=== PATIENT | female | born 1935 | race Caucasian/White ===

== ENCOUNTER 2016-10-03 14:02 | Observation (INO) ==
[2016-10-03] MEDS ORDERED: NITROGLYCERIN 2% OINT 1 INCH/GM PACK TOP STA (14:27)
[2016-10-03] MEDS ORDERED: ENOXAPARIN 100 MG/ML SYRINGE SUBCUT STA (14:27)
[2016-10-03] MEDS ORDERED: MORPHINE 2 MG/1 ML SYRINGE IV STA (14:27)
[2016-10-03] MEDS ORDERED: ONDANSETRON 4 MG/2 ML VIAL IV STA (14:27)
[2016-10-03] MEDS ORDERED: ASPIRIN 325 MG TABLET PO STA (14:27)
--- NOTE | 2016-10-03 14:31 | EKG Report ---
Stationary ECG Study 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
--- NOTE | 2016-10-03 14:46 | XRay Report ---
Exam: Chest 2 views Date: October 03, 2016 at 2:37 PM Comparison: None Reason: Chest pain Findings: The cardiac silhouette is upper normal in size. There is minimal scattered atelectasis or scarring within the lower lung zones. No pneumothorax or pleural effusion is identified. There is kyphosis and mild degenerative change at the thoracic spine, but no acute osseous process is seen. Surgical clips are noted within the right upper abdomen. Impression: Minimal scattered atelectasis or scarring within both lower lung zones. PROCEDURE INTERPRETED AT [facility] DEPARTMENT OF RADIOLOGY Final Report Signed by: Dr. Dylon Gardner
--- NOTE | 2016-10-03 14:55 | Emergency Department Note ---
Eve Diallo Ashley, am scribing for, and in the presence of, Sherif Delarosa MD 14 :45. Isaura Diallo James D, MD, personally performed the services described in this documentation, ascribed by Virginia Prado in my presence, and it is both accurate and complete 455 . Arrival - Arrival Chief Complaint: Chest Pain Stated Complaint: chest pain ED Nursing Triage Note: Pt states that she is having left shoulder and left arm pain - pt states that she has been seeing Dr Storm for this c/o and had some labs and EKG done and states that she has appt with Dr Mei for next week - pt was placed on a beta mario per Dr Storm at her last visit Mode of Arrival: Wheelchair Limitations: No Limitations Source: Patient Time Seen by Provider: 10/03/16 14:23 - History of Present Illness HPI Narrative: Ms. Price, an 81 year old female with history of angioplasty by Dr. Mei, presents with anterior left shoulder pain that radiates into her left arm. She report "not feeling well" when she first awoke, but around 10am she noticed the pain. She describes the pain as a constant pressure. The pain is accompanied with nausea and SOB. Exertion makes her SOB worse. She notes that she was seen at Dr. Storm office this past Friday with profuse sweating. An EKG showed an "abnormality" and a HR of 110. Dr. Storm put her on a beta mario at that time. Dr. Storm has recommended she follow up with Dr. Mei, and she has not had an appointment yet. She denies sweating, CHRISTIANSEN, back pain, neck pain, abdominal pain, and fever today. Onset (ago): hour(s) (4.5) Consistency: constant Severity: moderate Quality: other (pressure) Date of Last Menstrual Period: hyster Allergies/Adverse Reactions: Allergies Allergy/AdvReac Type Severity Reaction Status Date / Time levofloxacin [From Levaquin] Allergy Unknown/Unable Verified 10/03/16 14:10 to obtain Sulfa (Sulfonamide Allergy RASH Verified 10/03/16 14:10 Antibiotics) codeine AdvReac Dizziness Verified 10/03/16 14:10 Review of System - Review of System Constitutional: Absent: chills, fever Eyes: Absent: discharge, pain, vision change Head/Ears/Nose/Throat: Absent: nasal drainage, sore throat Respiratory: Present: other (SOB). Absent: cough Cardiovascular: Present: chest pain Gastrointestinal: Present: nausea. Absent: abdominal pain, vomiting Genitourinary female: Present: as per HPI Musculoskeletal: Present: arm pain. Absent: back pain, upper back pain Skin: Absent: rash, lesions Neurological: Absent: headache, weakness, numbness, paresthesias Psychiatric: Present: as per HPI Endocrine: Present: as per HPI Hematological/Lymphatic: Present: as per HPI Allergic/Immunologic: Present: as per HPI Medical,Surgical,& Family Hx - Medical History Endocrine: History of: Thyroid Disorder Gastrointestinal: History of: GERD - Surgical History Surgical History: noncontributory - Family History Family History: noncontributory - Social History Smoking Status: Never smoker Frequency of Alcohol Use: None Type of Drug Use: None Exam Vital Signs: Vital Signs Temperature 97.1 F L 10/03/16 14:10 Pulse Rate 68 10/03/16 14:10 Respiratory Rate 20 10/03/16 14:10 Blood Pressure 100/59 10/03/16 14:10 O2 Sat by Pulse Oximetry 98 10/03/16 14:10 - General General appearance: alert, in no apparent distress - Head Head exam: Present: atraumatic, normocephalic, normal inspection - Eye Eye exam: Present: normal appearance, PERRL, EOMI - ENT ENT exam: Present: normal exam, mucous membranes moist, normal external ear exam - Neck Neck exam: Present: normal inspection, full ROM, trachea midline - Chest Chest inspection: Present: normal inspection, symmetric chest wall rise - Respiratory Respiratory exam: Present: normal lung sounds bilaterally. Absent: rales, respiratory distress, rhonchi, stridor, wheezes - Cardiovascular Cardiovascular exam: Present: regular rate, normal rhythm, normal heart sounds. Absent: murmur, rubs, gallop - Abdominal Exam Abdominal exam: Present: soft. Absent: distention, tenderness - Extremities Exam Extremities exam: Present: normal inspection. Absent: pedal edema - Psychiatric Psychiatric exam: Present: flat affect - Skin Skin exam: Present: warm, dry, normal color Course - Consultations Consultation #1: Discussed with hospitalist. Patient will be admitted to their service. Time: 15:21 Results - Labs CBC & BMP: 10/03/16 14:53 Lab Results: I have reviewed the patients labs - EKG EKG results: interpreted by ERMD - Impressions EKG: Normal sinus rhythm with rate of 70, short VT interval, occasional ectopic premature complexes, nonspecific ST-T wave changes. - Diagnostic Findings Procedure: Chest x-ray: image reviewed by me (No cardiomegaly, no pleural effusions, no infiltrates.) Critical Care Time Critical Care Time: No Disposition Clinical Impression: Chest pain Case discussed with: patient Disposition: Still a Patient Condition: Stable
[2016-10-03 15:01] LABS: Basophils # 0.1 10*3/uL (0.0-0.2); Basophils % 0.5 % (0.0-0.8); Eosinophils # 0.2 10*3/uL (0.0-0.87); Eosinophils % 1.9 % (0.00-10.9); Hematocrit 38.7 VOL% (35.7-47.0); Hemoglobin 12.4 GM/DL (12.0-16.0); Immature Granulocytes % 0.4 %; Immature Granulocytes Absolute 0.04 #; Lymphocytes # 2.1 10*3/uL (1.4-4.0); Mean Corpuscular Hemoglobin 30 PG (27-34); Mean Corpuscular Volume 92.1 FL (87-102); Monocytes # 0.6 10*3/uL (0.11-0.8); Monocytes % 6.2 % (1.7-12.7); Neutrophils # 6.3 10*3/uL (1.4-7.4); Platelet Count 240 T/CUMM (130-400); Red Cell Distribution Width 13.2 % (9.3-17.3); White Blood Count 9.3 T/CUMM (4-12)
[2016-10-03 15:12] LABS: INR 1.1; PT Patient Result 11.3 SECS; Partial Thromboplastin Time 25.9 SECS (0-40)
[2016-10-03 15:27] LABS: Alanine Aminotransferase 23 U/L (13-56); Albumin 3.4 G/DL (3.4-5.0); Alkaline Phosphatase 86 U/L (45-117); Aspartate Amino Transferase 16 U/L (0-37); Bilirubin,Total < 0.39 MG/DL (0.2-1.0); Blood Urea Nitrogen 16 MG/DL (7-18); Calcium 8.7 MG/DL (8.5-10.1); Glucose 123 MG/DL (74-106); Magnesium 2.1 MG/DL (1.8-2.4); Osmolality,Calculated 280.4 MOS/KG (273-304); Potassium 3.8 MMOL/L (3.5-5.1); Sodium 140 MMOL/L (136-145); Total Protein 6.8 G/DL (6.4-8.3)
[2016-10-03] MEDS ORDERED: NITROGLYCERIN SL 0.4 MG TABLET SL PRN (15:38)
[2016-10-03] MEDS ORDERED: ONDANSETRON 4 MG/2 ML VIAL IV PRN (15:38)
[2016-10-03] MEDS ORDERED: ACETAMINOPHEN 325 MG TABLET PO PRN (15:38)
[2016-10-03] MEDS ORDERED: ZALEPLON 5 MG CAPSULE PO PRN (15:38)
[2016-10-03] MEDS ORDERED: ENOXAPARIN 40 MG/0.4 ML SYRINGE SUBCUT SCH (16:00)
--- NOTE | 2016-10-03 16:31 | Hospitalist History & Physical ---
Assessment and Plan - Time spent with patient Time spent with patient: Greater than 30 minutes (1) Polymyalgia rheumatica Status: Acute Assessment and plan: Patient has a history of polymyalgia rheumatica and she takes 5 mg of prednisone daily. We will go ahead and continue this home medicine while she is here in the hospital. Current Visit: Yes (2) GERD (gastroesophageal reflux disease) Status: Acute Assessment and plan: Patient does have a history of reflux. She will receive Protonix p.o. as inpatient. Current Visit: Yes (3) Hypothyroidism Status: Acute Assessment and plan: Patient has a history of hypothyroidism and she takes levothyroxine for this. This will be restarted. Current Visit: Yes (4) Chest pain Status: Acute Assessment and plan: 81-year-old white female with complaints of chest pressure and pain. She has normal troponins and normal EKG. She is a patient of Dr. Mei'baudilio so he will be consulted for patient's chest pain. Will get serial troponins. She will have oxygen as needed and morphine for pain as needed. Repeat labs in the morning along with an EKG. This patient's case has been discussed with ED physician Dr. Carranza and admitting physician Dr. Mosher. Dr. Mei has been consulted. Further recommendations to follow. Current Visit: Yes History of Present Illness Chief complaint: chest pain History of present illness: Ms Price is an 81WF w history of polymyalgia rheumatica and hypothyroidism presenting to the ED today w complaints of chest pressure radiating to the left shoulder and arm associated w nausea. pt states for the last 2-3 months she started having some increased HR and sob w activity. she states it worsened this last week so she went to see dr hodge. he started her on a BB and set her up to see dr mei from cardiology next . dr mei performed a balloon angioplasty 3y ago and she has fu w him yearly since then. pt states a 10am this am she started having chest pressure in her left chest that radiated to her shoulder and arm. she rates it a 4/10 and constant. she denies headache , dysphagia, sob, LE edema, constipation or diarrhea, blurred vision, and dizziness. pt is comfortable at this time. her VSS, labs are normal, EKG showing SR w PVCs, and normal troponins. have discussed pts case w dr carranza the ED physician and dr mosher the admitting hospitalist and we have agreed to admit the patient for observation. Allergies Allergy/AdvReac Type Severity Reaction Status Date / Time levofloxacin [From Levaquin] Allergy Unknown/Unable Verified 10/03/16 14:10 to obtain Sulfa (Sulfonamide Allergy RASH Verified 10/03/16 14:10 Antibiotics) codeine AdvReac Dizziness Verified 10/03/16 14:10 Medical,Surgical,& Family Hx - Medical History Endocrine: History of: Thyroid Disorder Rheumatology: History of;: Rheumatological Problems Gastrointestinal: History of: GERD - Surgical History Cardiac Surgeries: Sugical HX of: Cardiac Catheterization Abdominal Surgeries: Surgical HX of: Cholecystectomy Reproductive Surgeries: Surgical HX of;: Section, Hysterectomy - Family History Family History: Reports;: Family Heart Disease - Social History Smoking Status: Never smoker Frequency of Alcohol Use: None Type of Drug Use: None Functional capacity: independent ambulation Review of systems: a complete 10 system ROS was obtained and pertinent neg and positives are in HPI Exam - Constitutional Vitals: Period Temp Pulse Resp BP Sys/Blanchard Pulse Ox Last 24 Hr 97.1 F 68 20 100/59 Exam: Constitutional System: No distress. No tremulousness. Head: Normocephalic, atraumatic. Ears, Nose and Throat System: No evidence of Otitis or Mastoiditis. No epistaxis or discharge Eyes System: Pupils equal, round, and reactive. Extraocular muscles intact. Neck: Supple, without adenopathy, No jugular venous distention. No thyromegaly, neck mass, or prior surgery apparent. Respiratory System: Chest clear to auscultation. Cardiovascular System: Heart with regular rate and rhythm. No murmur. GI System: Abdomen soft, tender to palpation in the right lower quadrant. Normo active bowel sounds present. Musculoskeletal System: limbs with no pedal edema. Full distal pulses. Neurological System: No discernable sensory deficit. No aphasia Psychiatric System: Conversation is rational Results - Labs CBC & BMP: 10/03/16 14:53 10/03/16 14:53 Lab Results: I have reviewed the past 24 hour labs - EKG EKG shows: sinus rhythm - Diagnostic Findings Procedure: Chest x-ray: report reviewed by me (atelectasis)
--- NOTE | 2016-10-03 17:01 | Cardiology Consult Note ---
<Ilda Sood Serina - Last Filed: 10/03/16 16:48> Assessment and Plan - Time spent with patient Time spent with patient: Greater than 30 minutes (due to assessment, plan, and documentation) (1) Chest pain Status: Acute Assessment and plan: 81 y/o WF followed by Dr. Mei with hx of GERD, hypothyroid, polymyalgia rheumatica, depression. Previous cardiac catheterization x2 revealed mild luminal irregularities, no obstructive coronary disease. First troponin negative. Symptoms concerning for angina. No acute ischemic changes per EKG. -NPO after midnight for possible cath/stress testing. -Continue aspirin and lovenox daily. -FLP, TSH, FT4 in AM. -Continue to cycle cardiac biomarkers and EKG's. -NTG PRN chest pain. -Continue beta mario as blood pressure/pulse allows. -Dr. Mei to follow with further recommendations. Current Visit: Yes (2) GERD (gastroesophageal reflux disease) Status: Chronic Current Visit: Yes (3) Hypothyroidism Status: Chronic Current Visit: Yes (4) Polymyalgia rheumatica Status: Chronic Current Visit: Yes (5) Depression Status: Chronic Current Visit: Yes History of Present Illness - Data of Consult Patient: known to practice within the last 3 years (followed by Dr. Mei) Consult date: 10/03/16 Requesting Physician: Angel Talley Primary care physician: Nelson Storm - Consult Narrative Reason for consult: SOB, L arm pain History of present illness: LEGAL PARAPROFESSIONAL: DR. MEI PCP: DR. WILBERT STORM PATIENT IS SEEN IN THE EMERGENCY DEPARTMENT, ROOM #11. Mrs. Price is a 81 year old female, patient of Dr. Mei. She has a history of mild nonobstructive coronary disease, gastroesophageal reflux disease, hypothyroidism, polymyalgia rheumatica, depression. She is a lifetime non-smoker. Her last heart catheterization was 06/12/11 and revealed mild luminal irregularities, normal to hypodynamic global systolic function, moderate elevation of LVEDP, mild elevation of right heart pressures. There is no strong family history of coronary disease. Mrs. Price has a yearly follow up appointment with Dr. Mei next week. She presents to the emergency department today with complaints of shortness of breath that has worsened over the past 2 weeks. We were consulted to see her. She tells me she will become short of breath and diaphoretic with minimal exertion such as making the bed or washing dishes. She also reports left arm discomfort extending from her left scapula to beneath her left elbow. She describes this as a "heaviness" and an "uncomfortable sensation" rather than a pain and rates it a 4/10. She tells me that her SOB and discomfort is relieved with rest. This morning, her SOB was accompanied by nausea. She reports symptoms of night sweats approximately 1 week ago and palpitations that occur mainly at night. She also reports postural dizziness. She denies chest pain, neck pain, or jaw pain. She denies painful inspiration, syncope, wheezing, coughing. She tells me she saw her PCP last week and he performed an EKG and placed her on a beta mario. She states since then, she has not had as much trouble with diaphoresis. Her initial troponin is negative. EKG shows sinus rhythm, no acute ischemic changes. Blood pressure has been borderline hypotensive at 100/59. Heart rates in the 60's. She is being admitted to hospitalist services on the telemetry unit. Dr. Mei to follow with further plan and addendum. CC: - Home Medications and Allergies Home Medications: Home Medications Medication Instructions Recorded Confirmed Type Aspirin [Ecotrin] 325 mg PO DAILY 10/03/16 10/03/16 History Cetirizine HCl [ZyrTEC Cap] 10 mg PO DAILY 10/03/16 10/03/16 History Levothyroxine Tab [Synthroid Tab] 100 mcg PO DAILY@0700 10/03/16 10/03/16 History Metoprolol Succinate 25 mg PO DAILY 10/03/16 10/03/16 History Multivitamin (Ocuvite) [Ocuvite] 1 tablet PO DAILY 10/03/16 10/03/16 History Omeprazole 20 mg PO DAILY 10/03/16 10/03/16 History Sertraline [Zoloft] 100 mg PO DAILY 10/03/16 10/03/16 History predniSONE TAB [PredniSONE] 5 mg PO DAILY 10/03/16 10/03/16 History Allergies/Adverse Reactions: Allergies Allergy/AdvReac Type Severity Reaction Status Date / Time levofloxacin [From Levaquin] Allergy Unknown/Unable Verified 10/03/16 14:10 to obtain Sulfa (Sulfonamide Allergy RASH Verified 10/03/16 14:10 Antibiotics) codeine AdvReac Dizziness Verified 10/03/16 14:10 Review of systems: - Constitutional: Present: night sweats, fatigue, excessive sweating, As per HPI. Absent: anorexia, chills, daytime sleepiness, fever(s), frequent falls, headache(s), increased appetite, lethargy, malaise, stops breathing during sleep , weakness, weight gain, weight loss. - EENT Eyes: Present: As per HPI. Absent: blurry vision, diplopia, loss of vision Ears: Present: As per HPI. Absent: decreased hearing, ear discharge, ear pain Nose, mouth and throat: Present: As per HPI. Absent: dysphagia, epistaxis, headache(s), hoarseness, lip swelling, nasal congestion, neck mass, neck pain, sinus pressure, sore throat, throat swelling, tongue swelling, vertigo - Cardiovascular: Present: dyspnea on exertion, radiating jaw, neck or arm pain , palpitations, as per HPI. Absent: chest pain at rest, chest pain with activity, dyspnea, edema, claudication, diaphoresis, lightheadedness, orthopnea , PND - Respiratory: Present: dyspnea on exertion, as per HPI. Absent: dyspnea, cough , hemoptysis, wheezing, snoring, pain on inspiration - Gastrointestinal: Present: nausea, As per HPI. Absent: abdominal pain, bloating, change in bowel habits, constipation, diarrhea, heartburn, hematemesis , hematochezia, loose stools, melena, vomiting - Genitourinary: Present: As per HPI. Absent: difficulty urinating, dysuria, flank pain, hematuria, nocturia, urinary frequency, urinary incontinence - Musculoskeletal: Present: left shoulder and left arm pain, As per HPI. Absent : arthralgias, back pain, joint swelling, limited range of motion, muscle cramps , muscle weakness, myalgias - Neurological: Present: dizziness, As per HPI. Absent: abnormal gait, abnormal speech, behavioral changes, confusion, convulsions, disequilibrium, focal weakness, frequent falls, headache(s), memory loss, numbness, paresthesias , radicular pain, syncope, tremor(s) - Psychiatric: Present: depression, As per HPI. Absent: anxiety, confusion, panic attacks - Endocrine: Present: fatigue, heat intolerance, As per HPI. Absent: cold intolerance, polydipsia, polyphagia - Hematologic/Lymphatic: Present: As per HPI. Absent: easy bleeding, easy bruising, lymphadenopathy Medical,Surgical,& Family Hx - Medical History Endocrine: History of: Thyroid Disorder Rheumatology: History of;: Rheumatological Problems Gastrointestinal: History of: GERD - Surgical History Cardiac Surgeries: Sugical HX of: Cardiac Catheterization Abdominal Surgeries: Surgical HX of: Cholecystectomy Reproductive Surgeries: Surgical HX of;: Section, Hysterectomy - Family History Family History: Reports;: Family Heart Disease - Social History Smoking Status: Never smoker Frequency of Alcohol Use: None Type of Drug Use: None Marital Status: Lives With:: Spouse Functional capacity: uses cane/walker Physical Examination Vital Signs Temp Pulse Resp BP Pulse Ox 97.1 F L 68 20 100/59 98 10/03/16 14:10 10/03/16 14:10 10/03/16 14:10 10/03/16 14:10 10/03/16 14:10 Other: General appearance: Pleasant and cooperative. Normal weight, no acute distress. - Head Head exam: Present: normal inspection, normocephalic, atraumatic. Absent: hematoma, laceration - Eye Eye exam: Present: EOMI. Absent: conjunctival injection, nystagmus, periorbital swelling, scleral icterus, laceration to eyelids Pupils: Present: PERRL. Absent: constricted, dilated, fixed, irregular, unequal - ENT ENT exam: Present: normal exam, normal external ear exam - Neck Neck exam: Present: normal inspection. Absent: lymphadenopathy, meningismus, tenderness, thyromegaly - Respiratory Respiratory exam: Present: clear to auscultation bilaterally. Absent: accessory muscle use, chest wall tenderness, no wheezes, rhonchi, rales. - Cardiovascular Cardiovascular exam: Present: regular rate and rhythm. Absent: carotid bruit, gallop, JVD, rubs, murmur - GI/Abdominal GI/Abdominal exam: Present: normal bowel sounds, soft. Absent: distended, firm , guarding, hernia, mass, tenderness, rebound. - Extremities Exam Extremities exam: Present: normal inspection, normal capillary refill. Upper extremity pulses 2+. Lower extremity pulses 2+. Absent: calf tenderness, edema - Back Exam Back exam: Present: normal inspection. Absent: muscle spasm, vertebral tenderness - Neurological Exam Neurological exam: Present: alert, oriented X3, grossly intact without resting or essential tremor - Psychiatric Psychiatric exam: Present: normal affect, normal mood - Skin Skin exam: Present: normal color, warm, dry, intact. Absent: cyanosis, diaphoretic, rash, urticaria Result/EKG - Labs CBC & BMP: 10/03/16 14:53 10/03/16 14:53 Lab Results: I have reviewed the past 24 hour labs Labs: Laboratory Results - last 24 hr 10/03/16 10/03/16 10/03/16 14:53 14:53 14:53 WBC 9.3 RBC 4.20 Hgb 12.4 Hct 38.7 MCV 92.1 MCH 30 MCHC 32.0 RDW 13.2 Plt Count 240 MPV 10.0 Neut % (Auto) 68.0 Lymph % (Auto) 23.0 Barbour % (Auto) 6.2 Eos % (Auto) 1.9 Baso % (Auto) 0.5 Neut # (Auto) 6.3 Lymph # (Auto) 2.1 Barbour # (Auto) 0.6 Eos # (Auto) 0.2 Baso # (Auto) 0.1 Immature Gran % 0.4 Nucleated RBC % 0.0 Immature Gran # 0.04 Nucleated RBCs # 0.00 INR 1.1 PT Patient/Control Mix 11.3 Circ Anticoag PTT 25.9 Sodium 140 Potassium 3.8 Chloride 107 Carbon Dioxide 27 Anion Gap 9.8 BUN 16 Creatinine 1.20 H GFR Calculation 48 BUN/Creatinine Ratio 13.00 Glucose 123 H Calculated Osmolality 280.4 Calcium 8.7 Magnesium 2.1 Total Bilirubin < 0.39 AST 16 ALT 23 Alkaline Phosphatase 86 Troponin I Total Protein 6.8 Albumin 3.4 Globulin 3.4 Albumin/Globulin Ratio 1.0 L 10/03/16 14:53 WBC RBC Hgb Hct MCV MCH MCHC RDW Plt Count MPV Neut % (Auto) Lymph % (Auto) Barbour % (Auto) Eos % (Auto) Baso % (Auto) Neut # (Auto) Lymph # (Auto) Barbour # (Auto) Eos # (Auto) Baso # (Auto) Immature Gran % Nucleated RBC % Immature Gran # Nucleated RBCs # INR PT Patient/Control Mix Circ Anticoag PTT Sodium Potassium Chloride Carbon Dioxide Anion Gap BUN Creatinine GFR Calculation BUN/Creatinine Ratio Glucose Calculated Osmolality Calcium Magnesium Total Bilirubin AST ALT Alkaline Phosphatase Troponin I < 0.015 Total Protein Albumin Globulin Albumin/Globulin Ratio - EKG EKG results: interpreted by me, sinus rhythm <Primo Mei - Last Filed: 10/03/16 20:38> Assessment and Plan (1) Left arm pain Status: Acute Current Visit: Yes (2) Dyspnea on exertion Status: Acute Current Visit: Yes (3) Diaphoresis Status: Acute Current Visit: Yes (4) Overweight Status: Acute Current Visit: Yes (5) Anxiety Status: Acute Current Visit: Yes (6) Chest pain Status: Acute Current Visit: Yes (7) Depression Status: Chronic Current Visit: Yes (8) GERD (gastroesophageal reflux disease) Status: Chronic Current Visit: Yes (9) Hypothyroidism Status: Chronic Current Visit: Yes (10) Polymyalgia rheumatica Status: Chronic Current Visit: Yes (11) CAD (coronary artery disease) Status: Acute Current Visit: Yes (12) History of PTCA Status: Acute Current Visit: Yes History of Present Illness - Data of Consult Patient: known to practice within the last 3 years - Consult Narrative History of present illness: Ms. Price is a 81 year old female CC: Rachna Donato MD Physical Examination Vital Signs Temp Pulse Resp BP Pulse Ox 97.1 F L 68 20 100/59 98 10/03/16 14:10 10/03/16 14:10 10/03/16 14:10 10/03/16 14:10 10/03/16 14:10 Result/EKG - Labs CBC & BMP: 10/03/16 14:53 10/03/16 14:53 Labs: Laboratory Results - last 24 hr 10/03/16 19:04 Troponin I < 0.015
[2016-10-03] MEDS: NITROGLYCERIN 2% OINT 1 INCH/GM PACK TOP SCH (18:12)
[2016-10-03] MEDS ORDERED: POTASSIUM CHLORIDE RIDER 10 MEQ in PREMIX 1 EACH IV PRN (20:21)
[2016-10-03] MEDS ORDERED: MAGNESIUM SULF RIDER 2 GM in PREMIX 1 EACH IV PRN (20:21)
--- NOTE | 2016-10-03 20:39 | History and Physical Update ---
Sedation H&P Update - History and Physical H&P was reviewed, the patient examined and there: are no changes in the patients condition since last H&P was completed. - Dictation Physical: refer to H&P completed by admitting physician - Physical Exam Mental Status: alert and oriented Heart: regular rate and rhythm Lung: clear to auscultation Abdomen: within normal limits Vitals: within normal limits History and Physical Changes: Femoral pulses are 3-4+. Foot pulses are 2+. - Sedation Plan for Sedation: minimal Patient Consent: Procedure disscussed with patient and patinet has consented., Risks and benefits were discussed with patient,including infection,, bleeding, injury to surrounding structures, seizure, temporary nerve, Patient understands and accepts potential risks/benefits and agrees to (Left heart cath and possible PTCA or stent were discussed with the patient. The risk of the procedure include but are not limited to a small risk of injury to the vessel, abnormal heart rhythm, stroke, heart attack, need for emergent surgery, contrast reaction, restenosis, or . The patient voices understanding, agrees with the plan, and desires to proceed with the heart catheterization.), proceed. ASA Class: II Airway Assessment: Class II: Soft palate, uvula, fauces visible
[2016-10-03] MEDS: GABAPENTIN 100 MG CAPSULE PO SCH (22:03)
[2016-10-03] MEDS: SODIUM CHLORIDE 0.9% 1,000 ML IV SCH (22:04)
[2016-10-03] MEDS: ACETAMINOPHEN 325 MG TABLET PO SCH (22:04)
[2016-10-03] MEDS: traMADol 50 MG TABLET PO SCH (22:04)
[2016-10-04] MEDS: NITROGLYCERIN 2% OINT 1 INCH/GM PACK TOP SCH ×4 (01:36→18:07)
[2016-10-04 04:30] LABS: Calcium 8.7 MG/DL (8.5-10.1)
[2016-10-04 05:45] LABS: Magnesium 2.3 MG/DL (1.8-2.4); Risk Ratio 7.76; Thyroid Stimulating Hormone 0.099 uIU/ml (0.358-3.74)
--- NOTE | 2016-10-04 06:20 | EKG Report ---
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
[2016-10-04] MEDS ORDERED: diphenhydrAMINE CAP 25 MG CAPSULE PO ONE (07:00)
[2016-10-04] MEDS ORDERED: DIAZEPAM 5 MG TABLET PO ONE (07:00)
[2016-10-04] MEDS ORDERED: LEVOTHYROXINE 100 MCG TABLET PO SCH (07:00)
--- NOTE | 2016-10-04 07:44 | EKG Report ---
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
[2016-10-04] MEDS ORDERED: ASPIRIN EC 325 MG TABLET PO SCH (09:00)
[2016-10-04] MEDS ORDERED: ASPIRIN CHEW 81 MG TABLET PO SCH (09:00)
[2016-10-04] MEDS ORDERED: ASPIRIN EC 81 MG TABLET PO SCH (09:00)
[2016-10-04] MEDS: METOPROLOL SUCCINATE XL 25 MG TABLET PO SCH (11:21)
[2016-10-04] MEDS: SODIUM CHLORIDE 0.9% 1,000 ML IV SCH (11:21)
[2016-10-04] MEDS: PANTOPRAZOLE 40 MG TABLET PO SCH (11:21)
[2016-10-04] MEDS: GABAPENTIN 100 MG CAPSULE PO SCH ×4 (11:21→20:44)
[2016-10-04] MEDS ORDERED: MIDAZOLAM 2 MG/2 ML VIAL ONE (12:03)
[2016-10-04] MEDS ORDERED: MEPERIDINE 25 MG/1 ML VIAL ONE (12:03)
[2016-10-04] MEDS ORDERED: LIDOCAINE 1% 20 ML VIAL ONE (12:03)
--- NOTE | 2016-10-04 13:02 | Operative Note ---
Date of procedure: 10/04/16 Procedure Preformed: Left heart cath Coronary angiography Left ventriculography Angiogram of the right femoral artery--from the follow-through from the left ventriculogram Angio-Seal of the right femoral artery-successful Surgeon / Physician: Primo Mei Senior Power Scheduler: Cat [place] Post-op diagnosis: same (And left arm pain and left upper chest pain with minimal activity and at rest consistent with unstable angina. She has a history of a prior PTCA. She also has noticed progressive dyspnea on exertion over the last few weeks. She was referred for catheterization for unstable angina.) Findings: Impression: No significant obstructive coronary disease--- multiple areas of 10-20 percent narrowing, 1-2 areas of 30% narrowing-no area of blockage which would explain her chest pain/left inner arm pain The prior PTCA site remains widely patent Normal global/regional left systolic function, LVEF 55% Moderate elevation of LVEDP, 20-25 mmHg Angiogram the right femoral artery-via follow-through from the LV gram Angio-Seal of the right femoral artery-partially successful--some oozing post deployment Plan/recommendations: The patient will have risk factors optimized. Based on this angiogram, the patient's left inner arm pain and left upper chest pain is not due to fixed, obstructive coronary disease. I am suspicious it may the be related to C-spine, esophageal, or other musculoskeletal pain. Regarding her dyspnea on exertion, probably relates to her being slightly overweight and slightly out of shape. Plan at this point will be to continue proton pump inhibitor, continue the muscle skeletal pain meds, and to have her be more active and walking the halls and [place]. She can target walking 20-30 minutes for 5 days per week at her pace. The patient will be on antiplatelet medications to include aspirin indefinitely . It is my understanding she has some thyroid abnormalities which Dr Manuel Storm is treating.. Follow-up will be scheduled. Addenda: I saw the patient post-cath. the groin puncture site and distal pulse are stable. vital signs are stable and the patient will be observed closely overnight. Specimens: none sent Estimated blood loss: minimal Condition: stable Anesthesia: local, conscious sedation Disposition: floor
--- NOTE | 2016-10-04 13:09 | Cardiology Operative Report ---
Date of Procedure:: 10/04/16 Post-op diagnosis: same (And left arm pain and left upper chest pain with minimal activity and at rest consistent with unstable angina. She has a history of a prior PTCA. She also has noticed progressive dyspnea on exertion over the last few weeks. She was referred for catheterization for unstable angina.) Procedure: Date of procedure: 10/04/16 Procedure Preformed: Left heart cath Coronary angiography Left ventriculography Angiogram of the right femoral artery--from the follow-through from the left ventriculogram Angio-Seal of the right femoral artery-successful Surgeon / Physician: Primo Mei Meal Temperer: Cat [place] Post-op diagnosis: same (And left arm pain and left upper chest pain with minimal activity and at rest consistent with unstable angina. She has a history of a prior PTCA. She also has noticed progressive dyspnea on exertion over the last few weeks. She was referred for catheterization for unstable angina.) procedure: The patient was prepped and draped in usual manner. Entered the right femoral artery via the Seldinger technique. I used a sheath and then used a JL4 and engaged left coronary. Multiple views were taken. I then exchanged for a JR4. Multiple views of the right coronary were taken. I then exchanged for an angled pigtail. I crossed the valve. Left ventricular end-diastolic pressures measured. Left ventriculography was done. Left ventricle pullback was done. The catheters were then removed from the patient. Please see the cath data sheets for the details of catheters used. Complications: None Hemodynamic data: LVEDP was 20 - 25 mmHg. Angiographic data: The left main coronary was large and had minimal luminal irregularities. The left anterior descending artery was large vessel with minimal luminal irregularities . The left circumflex system was moderate to large. There was 1 major obtuse marginal and a post lateral branch. The origin of the obtuse marginal had 20-30 % eccentric narrowing. There are minimal luminal irregularities in the circumflex The right coronary artery was large in size, dominant vessel with the PDA. there were minimal luminal irregularities. FUCHS left ventriculography revealed normal global/regional left ventricular systolic function. Overall ejection fraction was at least 55%. There is no significant mitral regurgitation. Angiogram of the right femoral artery revealed the puncture site to be in a large vessel, above the bifurcation. It was suitable for Angio-Seal. Findings: Impression: No significant obstructive coronary disease--- multiple areas of 10-20 percent narrowing, 1-2 areas of 30% narrowing-no area of blockage which would explain her chest pain/left inner arm pain The prior PTCA site remains widely patent Normal global/regional left systolic function, LVEF 55% Moderate elevation of LVEDP, 20-25 mmHg Angiogram the right femoral artery-via follow-through from the LV gram Angio-Seal of the right femoral artery-partially successful--some oozing post deployment Plan/recommendations: The patient will have risk factors optimized. Based on this angiogram, the patient's left inner arm pain and left upper chest pain is not due to fixed, obstructive coronary disease. I am suspicious it may the be related to C-spine, esophageal, or other musculoskeletal pain. Regarding her dyspnea on exertion, probably relates to her being slightly overweight and slightly out of shape. Plan at this point will be to continue proton pump inhibitor, continue the muscle skeletal pain meds, and to have her be more active and walking the halls and [place]. She can target walking 20-30 minutes for 5 days per week at her pace. The patient will be on antiplatelet medications to include aspirin indefinitely . It is my understanding she has some thyroid abnormalities which Dr Manuel Storm is treating.. Follow-up will be scheduled. Addenda: I saw the patient post-cath. the groin puncture site and distal pulse are stable. vital signs are stable and the patient will be observed closely overnight. Specimens: none sent Estimated blood loss: minimal Condition: stable Anesthesia: local, conscious sedation Disposition: floor Additional CC's: Collette Storm Anesthesia: local, minimal conscious sedation Surgeon / Physician: Primo Mei Meal Temperer: other Estimated blood loss: minimal Specimens: none sent Condition: stable Disposition: floor
--- NOTE | 2016-10-04 13:20 | Hospitalist Progress Note ---
Assessment and Plan - Time spent with patient Time spent with patient: Greater than 30 minutes (1) Chest pain Status: Acute Assessment and plan: Troponins are serially negative. Cardiology is evaluating and will take the patient to the Vehicle Care Specialist this morning. Current Visit: Yes (2) CAD (coronary artery disease) Status: Acute Assessment and plan: Will reduce the synthroid dose. Current Visit: Yes (3) Iatrogenic hyperthyroidism Status: Acute Current Visit: Yes (4) Polymyalgia rheumatica Status: Chronic Assessment and plan: Continue current medications. Current Visit: Yes Hospitalist: Subjective Interval history: Denies any chest pain this morning. She was admitted for evaluation of chest pain and cardiology will plan a cath this morning. No overnight events. Exam - Constitutional Vitals: Period Temp Pulse Resp BP Sys/Blanchard Pulse Ox Last 24 Hr 96.2 F-98.4 F 60-68 16-21 96-116/52-59 95-98 General appearance: no acute distress - Head Head exam: Present: normocephalic, atraumatic - Eye Eye exam: Present: EOMI Pupils: Present: RAMÍREZ - ENT ENT exam: Present: normal exam - Neck Neck exam: Present: normal inspection - Respiratory Respiratory exam: Present: clear to auscultation bilaterally. Absent: rhonchi, wheezes - Cardiovascular Cardiovascular exam: Present: regular rate and rhythm. Absent: gallop, rubs, systolic murmur - GI/Abdominal GI/Abdominal exam: Present: normal bowel sounds, soft. Absent: distended, firm , guarding, tenderness, rebound - Extremities Exam Extremities exam: Present: normal inspection. Absent: calf tenderness, edema Results - Labs CBC & BMP: 10/03/16 14:53 10/04/16 03:15 Lab Results: I have reviewed the past 24 hour labs Quality Measures - VTE Contraindication to Pharmacological VTE Prophylaxis: High Risk of Bleeding Specialty Discharge - Follow Up or Referrals
[2016-10-04] MEDS: traMADol 50 MG TABLET PO SCH ×2 (15:53→20:44)
[2016-10-04] MEDS: MULTIVITAMIN (OCUVITE) TABLET PO SCH (15:53)
[2016-10-04] MEDS: CETIRIZINE 10 MG TABLET PO SCH (15:53)
[2016-10-04] MEDS: ACETAMINOPHEN 325 MG TABLET PO SCH ×2 (15:53→20:44)
[2016-10-04] MEDS: SERTRALINE 100 MG TABLET PO SCH (15:53)
[2016-10-04] MEDS: predniSONE 5 MG TABLET PO SCH (15:59)
[2016-10-05] MEDS: NITROGLYCERIN 2% OINT 1 INCH/GM PACK TOP SCH ×3 (01:23→15:42)
[2016-10-05 06:01] LABS: Basophils # 0.1 10*3/uL (0.0-0.2); Basophils % 0.7 % (0.0-0.8); Eosinophils # 0.3 10*3/uL (0.0-0.87); Eosinophils % 2.6 % (0.00-10.9); Hematocrit 38.9 VOL% (35.7-47.0); Hemoglobin 12.2 GM/DL (12.0-16.0); Immature Granulocytes % 0.3 %; Immature Granulocytes Absolute 0.03 #; Lymphocytes # 3.3 10*3/uL (1.4-4.0); Lymphocytes % 32.6 % (21.3-54.2); Mean Corpuscular HGB Conc 31.4 GM/DL (32-36); Mean Corpuscular Hemoglobin 29 PG (27-34); Mean Corpuscular Volume 93.7 FL (87-102); Monocytes # 0.9 10*3/uL (0.11-0.8); Monocytes % 8.8 % (1.7-12.7); Neutrophils # 5.5 10*3/uL (1.4-7.4); Platelet Count 233 T/CUMM (130-400); Red Blood Count 4.15 MC/CUMM (3.8-5.5); Red Cell Distribution Width 13.2 % (9.3-17.3)
[2016-10-05 06:41] LABS: Calcium 8.4 MG/DL (8.5-10.1); Osmolality,Calculated 289.7 MOS/KG (273-304); Potassium 4.5 MMOL/L (3.5-5.1)
[2016-10-05] MEDS ORDERED: LEVOTHYROXINE 50 MCG TABLET PO SCH (07:00)
--- NOTE | 2016-10-05 07:56 | EKG Report ---
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
[2016-10-05] MEDS ORDERED: ASPIRIN CHEW 81 MG TABLET PO SCH (09:00)
[2016-10-05] MEDS: GABAPENTIN 100 MG CAPSULE PO SCH ×2 (09:56→15:42)
[2016-10-05] MEDS: traMADol 50 MG TABLET PO SCH (09:56)
[2016-10-05] MEDS: predniSONE 5 MG TABLET PO SCH (09:56)
[2016-10-05] MEDS: SERTRALINE 100 MG TABLET PO SCH (09:56)
[2016-10-05] MEDS: METOPROLOL SUCCINATE XL 25 MG TABLET PO SCH (09:56)
[2016-10-05] MEDS: ACETAMINOPHEN 325 MG TABLET PO SCH (09:56)
[2016-10-05] MEDS: CETIRIZINE 10 MG TABLET PO SCH (09:56)
[2016-10-05] MEDS: PANTOPRAZOLE 40 MG TABLET PO SCH (09:56)
[2016-10-05] MEDS: MULTIVITAMIN (OCUVITE) TABLET PO SCH (09:57)
[2016-10-05 12:50] VITALS: BP 108/54
--- NOTE | 2016-10-05 13:33 | Cardiology Progress Note ---
Assessment and Plan (1) Left arm pain Status: Acute Assessment and plan: The left arm pain and chest pain is noncardiac. It probably is either C-spine, muscle skeletal, or GI related. I recommend that she continue on the gabapentin for 30 days, tramadol for 7 days, Tylenol for 7 days, and a proton pump inhibitor at least a month. Currently, I have a follow-up appointment with her for these next Friday. i will cancel that any other appointments and see her back in about 6 weeks. I see her sooner should problems arise. Thank you for allowing me to participate in this patient's care Current Visit: Yes (2) Dyspnea on exertion Status: Acute Current Visit: Yes (3) Diaphoresis Status: Acute Current Visit: Yes (4) Overweight Status: Acute Current Visit: Yes (5) Anxiety Status: Acute Current Visit: Yes (6) Chest pain Status: Acute Current Visit: Yes (7) Depression Status: Chronic Current Visit: Yes (8) GERD (gastroesophageal reflux disease) Status: Chronic Current Visit: Yes (9) Hypothyroidism Status: Chronic Current Visit: Yes (10) Polymyalgia rheumatica Status: Chronic Current Visit: Yes (11) CAD (coronary artery disease) Status: Acute Current Visit: Yes (12) History of PTCA Status: Acute Current Visit: Yes (13) Cervical spine disease Status: Acute Current Visit: Yes (14) Iatrogenic hyperthyroidism Status: Acute Current Visit: Yes Cardiology - PN: Subj Interval history: No chest pain. Some slight left inner arm pain. She wonders if it relates to her cervical or thoracic disc disease which she has, is known. Exam (Progress Note) - Constitutional Vitals: Period Temp Pulse Resp BP Sys/Blanchard Pulse Ox Last 24 Hr 97.4 F-98.4 F 56-93 12-20 97-136/52-81 96-99 Exam: HEENT: Pupils equal, reactive to light and accommodation Neck: NoJVD or bruit Lungs clear to auscultation Heart: Regular rhythm rate with normal S1 and S2. Apical S4 Abdomen: No hepatosplenomegaly Spine/extremities: No clubbing, cyanosis, or edema Neuro: Nonfocal Psych: No depression or anxiety Right groin had no significant hematoma. Distal pulse is normal. Result/EKG - Labs CBC & BMP: 10/05/16 05:54 10/05/16 05:54 Lab Results: I have reviewed the past 24 hour labs Labs: Laboratory Results - last 24 hr 10/05/16 10/05/16 05:54 05:54 WBC 10.0 RBC 4.15 Hgb 12.2 Hct 38.9 MCV 93.7 MCH 29 MCHC 31.4 L RDW 13.2 Plt Count 233 MPV 10.0 Neut % (Auto) 55.0 Lymph % (Auto) 32.6 [place] % (Auto) 8.8 Eos % (Auto) 2.6 Baso % (Auto) 0.7 Neut # (Auto) 5.5 Lymph # (Auto) 3.3 [place] # (Auto) 0.9 H Eos # (Auto) 0.3 Baso # (Auto) 0.1 Immature Gran % 0.3 Nucleated RBC % 0.0 Immature Gran # 0.03 Nucleated RBCs # 0.00 Sodium 145 Potassium 4.5 Chloride 110 H Carbon Dioxide 29 Anion Gap 10.5 BUN 14 Creatinine 1.00 GFR Calculation 61 BUN/Creatinine Ratio 14.00 Glucose 111 H Calculated Osmolality 289.7 Calcium 8.4 L - EKG EKG results: interpreted by me, WNL, sinus rhythm, normal axis, normal QRS, normal ST/T, no acute changes, not changed from: Quality Measures - VTE Contraindication to Pharmacological VTE Prophylaxis: High Risk of Bleeding Specialty Discharge - Follow Up or Referrals Follow up with: Primo Mei MD [Physician] - (Cancel my appointment for , this Friday, and any other upcoming appointments with me. Set up a new appointment to see me in about 6 weeks or so.) - Speciality Discharge Instructions Cardiology Instructions: you can start walking slowly, at your pace, to the point of shortness of breath. then rest. When you catch your breath, then you could walk again to the point of shortness of breath, etc. Try to build up to walking, at your pace, about 20-30 minutes, 4-5 days a week. This will help lessen your dyspnea on exertion.
--- NOTE | 2016-10-05 15:00 | Discharge Summary ---
Hospital Course - Hospital Course Hospital Course: Ms. Price is a 81-year-old female who was admitted with chest pain. EKG was unremarkable. Troponins were serially negative. LDL was noted to be 196 and cholesterol 295. TSH was 0.099 and free T4 was 1.1. Patient's Synthroid dose was reduced to 50 g daily. She unfortunately had an allergy to statins she was not started on a statin while hospitalized or on discharge. She was seen in consultation by cardiology who performed a left heart cath. This revealed no significant obstructive coronary disease and her chest pain and left arm pain were unlikely to be secondary to cardiac origin. She is encouraged to eat a healthy diet and follow up with her primary care provider. She will also follow-up with cardiology. I spent 38 minutes coordinating this discharge. - Time spent with patient Time with patient DS: Greater than 30 minutes Diagnosis - Discharge Diagnosis (1) Chest pain Status: Acute (2) CAD (coronary artery disease) Status: Acute (3) Iatrogenic hyperthyroidism Status: Acute (4) Polymyalgia rheumatica Status: Chronic Specialty Discharge - Follow Up or Referrals Follow up with: Primo Mei MD [Physician] - (Cancel my appointment for , friday, and any other upcoming appointments with me. Set up a new appointment to see me in about 6 weeks or so.) Discharge Plan - Discharge Data Disposition: Disch To Home/Self Care Condition at Discharge: Stable Discharge Diet: advance to your usual diet Activity: resume usual activities as tolerated - Discharge Medications New Levothyroxine Tab [Synthroid Tab] 50 mcg PO DAILY@0700 #30 tablet Gabapentin Cap/Tab [Neurontin Cap/Tab] 100 mg PO TID #90 capsule Continue Cetirizine HCl [ZyrTEC Cap] 10 mg PO DAILY Sertraline [Zoloft] 100 mg PO DAILY Metoprolol Succinate 25 mg PO DAILY Aspirin [Ecotrin] 325 mg PO DAILY predniSONE TAB [PredniSONE] 5 mg PO DAILY Multivitamin (Ocuvite) [Ocuvite] 1 tablet PO DAILY Omeprazole 20 mg PO DAILY Discontinued Levothyroxine Tab [Synthroid Tab] 100 mcg PO DAILY@0700 - Follow Up or Referral Follow Up: Primo Mei MD [Physician] - (Cancel my appointment for , friday, and any other upcoming appointments with me. Set up a new appointment to see me in about 6 weeks or so.) - Forms/Instructions Instructions: Coronary Artery Disease (GEN), Left Heart Catheterization (DC), Heart Healthy Diet (GEN) Exam - Constitutional Vitals: Period Temp Pulse Resp BP Sys/Blanchard Pulse Ox Last 24 Hr 97.4 F-98.4 F 56-93 12-20 97-113/52-81 96-99 General appearance: normal weight, no acute distress - Head Head exam: Present: normal inspection, normocephalic - Eye Eye exam: Present: EOMI Pupils: Present: RAMÍREZ - ENT ENT exam: Present: normal exam - Neck Neck exam: Present: normal inspection - Respiratory Respiratory exam: Present: clear to auscultation bilaterally - Cardiovascular Cardiovascular exam: Present: regular rate and rhythm - GI/Abdominal GI/Abdominal exam: Present: normal bowel sounds - Extremities Exam Extremities exam: Present: normal inspection Discharge Results Procedures and tests throughout hospitalization: Pending Orders 10/04/16 11:01 CL heart Routine Labs on day of discharge: Labs from last 24 hours 10/05/16 10/05/16 05:54 05:54 WBC 10.0 RBC 4.15 Hgb 12.2 Hct 38.9 MCV 93.7 MCH 29 MCHC 31.4 L RDW 13.2 Plt Count 233 MPV 10.0 Neut % (Auto) 55.0 Lymph % (Auto) 32.6 [place] % (Auto) 8.8 Eos % (Auto) 2.6 Baso % (Auto) 0.7 Neut # (Auto) 5.5 Lymph # (Auto) 3.3 [place] # (Auto) 0.9 H Eos # (Auto) 0.3 Baso # (Auto) 0.1 Immature Gran % 0.3 Nucleated RBC % 0.0 Immature Gran # 0.03 Nucleated RBCs # 0.00 Sodium 145 Potassium 4.5 Chloride 110 H Carbon Dioxide 29 Anion Gap 10.5 BUN 14 Creatinine 1.00 GFR Calculation 61 BUN/Creatinine Ratio 14.00 Glucose 111 H Calculated Osmolality 289.7 Calcium 8.4 L DS: Provider Date of admission: 10/03/16 15:38 Primary care physician: . No PCP Attending physician on admission: Angel Talley MD Consults: 10/03/16 15:48 Consult to Pharmacy [CONS] Routine Reason for Pharmacy Consult: Adjust Meds Renal Funct Discharging clinician: Rachna Donato MD Expected date of discharge: 10/05/16
== END 2016-10-05 15:51 | disposition home or self-care (01) ==
LOC: N.ED 14:02 → N.EDINP 14:02 → SUATTDRO 15:38 → N.TELES 16:43
PROVIDERS: ADMIT Family Medicine; ATTEND Internal Medicine
PROC: CLCCHCL (ICD-10-PCS; 2016-10-04 12:15)

== ENCOUNTER 2017-06-21 10:06 | Inpatient (IN) ==
[2017-06-21] MEDS ORDERED: ALBUTEROL/IPRATROPIUM 3 ML NEB RESP TX STA (11:39)
[2017-06-21 12:03] LABS: Basophils % 0.5 % (0.0-0.8); Eosinophils % 0.1 % (0.00-10.9); Hematocrit 38.2 VOL% (35.7-47.0); Immature Granulocytes % 0.3 %; Immature Granulocytes Absolute 0.03 #; Lymphocytes # 0.7 10*3/uL (1.4-4.0); Lymphocytes % 7.6 % (21.3-54.2); Mean Corpuscular HGB Conc 31.4 GM/DL (32-36); Mean Corpuscular Hemoglobin 30 PG (27-34); Mean Corpuscular Volume 95.3 FL (87-102); Mean Platelet Volume 10.5 FL (9.6-12.0); Monocytes % 11.4 % (1.7-12.7); Neutrophils # 6.9 10*3/uL (1.4-7.4); Neutrophils % 80.1 % (38.7-73.9); Platelet Count 158 T/CUMM (130-400); Red Blood Count 4.01 MC/CUMM (3.8-5.5); Red Cell Distribution Width 13.7 % (9.3-17.3); White Blood Count 8.6 T/CUMM (4-12)
[2017-06-21 12:14] LABS: INR 1.3; PT Patient Result 13.1 SECS
[2017-06-21] MEDS ORDERED: SODIUM CHLORIDE 0.9% 1,000 ML IV STA (12:27)
[2017-06-21 12:37] LABS: Alanine Aminotransferase 29 U/L (13-56); Albumin 2.8 G/DL (3.4-5.0); Alkaline Phosphatase 74 U/L (45-117); Aspartate Amino Transferase 56 U/L (0-37); Blood Urea Nitrogen 17 MG/DL (7-18); Calcium 8.1 MG/DL (8.5-10.1); Glucose 92 MG/DL (74-106); Magnesium 1.7 MG/DL (1.8-2.4); Osmolality,Calculated 269.2 MOS/KG (273-304); Potassium 3.4 MMOL/L (3.5-5.1); Sodium 134 MMOL/L (136-145); Total Protein 6.3 G/DL (6.4-8.3)
[2017-06-21 12:39] LABS: Troponin I Only 0.058 NG/ML (0.00-0.045)
[2017-06-21 13:52] LABS: Band Neutrophils 1 % (0-10); Burr Cells Few; Hypochromasia Slight; Lymphocytes 7 % (20-55); Platelet Estimate Normal; Poikilocytosis Slight; Segmented Neutrophils 85 % (50-85); Total Cells Counted 100
[2017-06-21 13:53] LABS: Tear Drop Cells Few
[2017-06-21] MEDS ORDERED: POTASSIUM CHLORIDE 10 MEQ TABLET PO ONE (14:53)
[2017-06-21] MEDS ORDERED: MAGNESIUM SULF RIDER 1 GM in PREMIX 1 EACH IV ONE (14:56)
[2017-06-21] MEDS: SODIUM CHLORIDE 0.9% 1,000 ML IV SCH (16:10)
[2017-06-21] MEDS: cefTRIAXone 1,000 MG in SYRINGE 1 EACH IV SCH (16:10)
[2017-06-21] MEDS: OSELTAMIVIR 30 MG CAPSULE PO SCH ×2 (18:14→21:42)
[2017-06-21] MEDS: ALBUTEROL/IPRATROPIUM 3 ML NEB RESP TX SCH (20:15)
[2017-06-21] MEDS: ENOXAPARIN 30 MG/0.3 ML SYRINGE SUBCUT SCH (21:42)
[2017-06-22] MEDS: ALBUTEROL/IPRATROPIUM 3 ML NEB RESP TX SCH ×4 (00:36→19:46)
[2017-06-22] MEDS: SODIUM CHLORIDE 0.9% 1,000 ML IV SCH ×4 (00:47→22:49)
[2017-06-22 04:18] LABS: Basophils % 0.5 % (0.0-0.8); Eosinophils % 0.2 % (0.00-10.9); Hematocrit 34.1 VOL% (35.7-47.0); Hemoglobin 10.7 GM/DL (12.0-16.0); Immature Granulocytes % 0.5 %; Immature Granulocytes Absolute 0.03 #; Lymphocytes # 0.8 10*3/uL (1.4-4.0); Mean Corpuscular HGB Conc 31.4 GM/DL (32-36); Mean Corpuscular Hemoglobin 30 PG (27-34); Mean Corpuscular Volume 94.7 FL (87-102); Mean Platelet Volume 11.8 FL (9.6-12.0); Monocytes # 0.6 10*3/uL (0.11-0.8); Monocytes % 10.3 % (1.7-12.7); Neutrophils # 4.4 10*3/uL (1.4-7.4); Neutrophils % 75.5 % (38.7-73.9); Platelet Count 143 T/CUMM (130-400); Red Cell Distribution Width 13.9 % (9.3-17.3); White Blood Count 5.9 T/CUMM (4-12)
[2017-06-22 04:52] LABS: Calcium 7.3 MG/DL (8.5-10.1); Magnesium 1.7 MG/DL (1.8-2.4); Osmolality,Calculated 278.5 MOS/KG (273-304); Platelet Estimate Adequate; Potassium 3.6 MMOL/L (3.5-5.1); Troponin I Only 0.034 NG/ML (0.00-0.045)
[2017-06-22] MEDS: methylPREDNISolone SOD SUC 125 MG/2 ML VIAL IV SCH ×3 (08:25→23:40)
[2017-06-22] MEDS: OSELTAMIVIR 30 MG CAPSULE PO SCH (08:25)
[2017-06-22] MEDS: cefTRIAXone 1,000 MG in SYRINGE 1 EACH IV SCH (15:45)
[2017-06-22] MEDS: ENOXAPARIN 30 MG/0.3 ML SYRINGE SUBCUT SCH (22:49)
[2017-06-22] MEDS: OSELTAMIVIR 75 MG CAPSULE PO SCH (22:50)
[2017-06-22] MEDS: guaiFENesin/DM ER 600-30 MG TABLET PO PRN (23:40)
[2017-06-23] MEDS: ALBUTEROL/IPRATROPIUM 3 ML NEB RESP TX SCH ×6 (00:26→23:58)
[2017-06-23] MEDS: methylPREDNISolone SOD SUC 125 MG/2 ML VIAL IV SCH ×3 (01:21→15:54)
[2017-06-23 06:36] LABS: Basophils % 0.1 % (0.0-0.8); Hematocrit 34.4 VOL% (35.7-47.0); Hemoglobin 10.8 GM/DL (12.0-16.0); Immature Granulocytes % 0.6 %; Immature Granulocytes Absolute 0.05 #; Lymphocytes # 0.5 10*3/uL (1.4-4.0); Mean Corpuscular HGB Conc 31.4 GM/DL (32-36); Mean Corpuscular Hemoglobin 29 PG (27-34); Mean Corpuscular Volume 92.5 FL (87-102); Monocytes # 0.4 10*3/uL (0.11-0.8); Monocytes % 5.3 % (1.7-12.7); Neutrophils # 7.2 10*3/uL (1.4-7.4); Platelet Count 163 T/CUMM (130-400); Red Blood Count 3.72 MC/CUMM (3.8-5.5); White Blood Count 8.2 T/CUMM (4-12)
[2017-06-23 07:05] LABS: Calcium 7.8 MG/DL (8.5-10.1); Potassium 2.9 MMOL/L (3.5-5.1)
[2017-06-23 08:10] LABS: ABG HCO3 21.1 MMOL/L (20-26); ABG Oxygen Saturation 97.5 % (95-100); ABG PH 7.402 (7.35-7.45); ABG PO2 87.3 MM HG (80-95); ABG TCO2 17.8 MMOL/L (23-27)
[2017-06-23 08:22] LABS: Band Neutrophils 2 % (0-10); Burr Cells 1+; Lymphocytes 13 % (20-55); Platelet Estimate Normal; Segmented Neutrophils 84 % (50-85); Total Cells Counted 100
[2017-06-23 08:23] LABS: Macrocytosis Slight
[2017-06-23] MEDS: OSELTAMIVIR 75 MG CAPSULE PO SCH ×2 (10:15→22:17)
[2017-06-23] MEDS: SODIUM CHLORIDE 0.9% 1,000 ML IV SCH (10:16)
[2017-06-23] MEDS: ALPRAZolam 0.25 MG TABLET PO PRN ×2 (11:13→16:08)
[2017-06-23] MEDS: FUROSEMIDE 40 MG/4 ML VIAL IV SCH ×2 (13:27→19:45)
[2017-06-23] MEDS: POTASSIUM CHLORIDE 20 MEQ TABLET PO SCH ×2 (15:53→22:16)
[2017-06-23] MEDS: cefTRIAXone 1,000 MG in SYRINGE 1 EACH IV SCH (15:53)
[2017-06-23] MEDS: ALUMINUM/MAGNES/SIMETH MAX STR 30 ML UDCUP PO PRN (22:16)
[2017-06-23] MEDS: ENOXAPARIN 30 MG/0.3 ML SYRINGE SUBCUT SCH (22:17)
[2017-06-24] MEDS: methylPREDNISolone SOD SUC 125 MG/2 ML VIAL IV SCH ×2 (00:01→10:02)
[2017-06-24] MEDS: ALPRAZolam 0.25 MG TABLET PO PRN ×2 (00:01→17:55)
[2017-06-24] MEDS: FUROSEMIDE 40 MG/4 ML VIAL IV SCH ×2 (00:55→06:40)
[2017-06-24 02:33] LABS: Apearance,Urine CLEAR (Clear); Bacteria,Urine Occasional /HPF (Few); Bilirubin,Urine Negative (Negative); Blood, Urine Moderate mg/dL (Negative); Glucose,Urine (UA) 50 mg/dL (Negative); Ketones,Urine 5 mg/dL (Negative); Nitrite,Urine Negative (Negative); Protein,Urine Negative; RBC,Urine 1 /HPF (0-4); Squamous Epithelial Cell,Urine Occasional /HPF (0-10); Urine Color Yellow (Yellow); Urine Specific Gravity 1.006 (1.001-1.035); Urine Urobilinogen < 2.0 EU/DL (0.2-1.0); WBC,Urine 1 /HPF (0-6)
[2017-06-24 06:46] LABS: Basophils % 0.1 % (0.0-0.8); Hematocrit 36.3 VOL% (35.7-47.0); Hemoglobin 11.7 GM/DL (12.0-16.0); Immature Granulocytes % 0.6 %; Immature Granulocytes Absolute 0.08 #; Lymphocytes # 0.7 10*3/uL (1.4-4.0); Lymphocytes % 4.6 % (21.3-54.2); Mean Corpuscular HGB Conc 32.2 GM/DL (32-36); Mean Corpuscular Hemoglobin 30 PG (27-34); Mean Corpuscular Volume 91.9 FL (87-102); Mean Platelet Volume 11.3 FL (9.6-12.0); Monocytes % 6.9 % (1.7-12.7); Neutrophils # 12.8 10*3/uL (1.4-7.4); Neutrophils % 87.8 % (38.7-73.9); Platelet Count 214 T/CUMM (130-400); Red Blood Count 3.95 MC/CUMM (3.8-5.5); Red Cell Distribution Width 14.2 % (9.3-17.3); White Blood Count 14.5 T/CUMM (4-12)
[2017-06-24 07:17] LABS: Hypochromasia 1+; Lymphocytes 4 % (20-55); Platelet Estimate Adequate; Segmented Neutrophils 87 % (50-85); Total Cells Counted 100
[2017-06-24 07:21] LABS: Calcium 8.4 MG/DL (8.5-10.1); Magnesium 1.9 MG/DL (1.8-2.4); Osmolality,Calculated 293.7 MOS/KG (273-304); Potassium 3.4 MMOL/L (3.5-5.1)
[2017-06-24 07:23] LABS: Albumin 2.9 G/DL (3.4-5.0); Bilirubin,Total 0.7 MG/DL (0.2-1.0); Calcium 8.4 MG/DL (8.5-10.1); Magnesium 1.8 MG/DL (1.8-2.4); Osmolality,Calculated 294.7 MOS/KG (273-304); Potassium 3.4 MMOL/L (3.5-5.1); Total Protein 6.1 G/DL (6.4-8.3)
[2017-06-24] MEDS: ALBUTEROL/IPRATROPIUM 3 ML NEB RESP TX SCH ×3 (07:38→20:40)
[2017-06-24] MEDS: POTASSIUM CHLORIDE 20 MEQ TABLET PO SCH (10:02)
[2017-06-24] MEDS: OSELTAMIVIR 75 MG CAPSULE PO SCH ×2 (10:03→22:02)
[2017-06-24] MEDS: ONDANSETRON 4 MG/2 ML VIAL IV PRN (10:03)
[2017-06-24] MEDS ORDERED: ALUM/MAG/SIMETH/LIDO VISC 1:1 30 ML BOTTLE PO ONE (12:03)
[2017-06-24] MEDS ORDERED: PROMETHAZINE 25 MG/1 ML VIAL IM PRN (12:12)
[2017-06-24] MEDS: PANTOPRAZOLE 40 MG VIAL IV SCH (15:24)
[2017-06-24] MEDS: PIPERACILLIN/TAZOBACTAM 3,375 MG in SODIUM CHLORIDE 0.9% 100 ML IV SCH ×2 (15:25→23:22)
[2017-06-24] MEDS ORDERED: VANCOMYCIN INJ 1,000 MG in SODIUM CHLORIDE 0.9% 250 ML IV ONE (17:00)
[2017-06-24] MEDS: ENOXAPARIN 30 MG/0.3 ML SYRINGE SUBCUT SCH (22:02)
[2017-06-25] MEDS: ALBUTEROL/IPRATROPIUM 3 ML NEB RESP TX SCH ×4 (00:44→19:33)
[2017-06-25 05:43] LABS: Basophils % 0.2 % (0.0-0.8); Hematocrit 34.4 VOL% (35.7-47.0); Hemoglobin 11.1 GM/DL (12.0-16.0); Immature Granulocytes % 1.2 %; Immature Granulocytes Absolute 0.17 #; Lymphocytes # 1.5 10*3/uL (1.4-4.0); Lymphocytes % 10.5 % (21.3-54.2); Mean Corpuscular HGB Conc 32.3 GM/DL (32-36); Mean Corpuscular Hemoglobin 29 PG (27-34); Mean Corpuscular Volume 91.2 FL (87-102); Mean Platelet Volume 11.3 FL (9.6-12.0); Monocytes # 1.4 10*3/uL (0.11-0.8); Monocytes % 9.8 % (1.7-12.7); Neutrophils # 11.2 10*3/uL (1.4-7.4); Neutrophils % 78.3 % (38.7-73.9); Platelet Count 185 T/CUMM (130-400); Red Blood Count 3.77 MC/CUMM (3.8-5.5); Red Cell Distribution Width 14.2 % (9.3-17.3); White Blood Count 14.3 T/CUMM (4-12)
[2017-06-25 06:27] LABS: Albumin 2.5 G/DL (3.4-5.0); Bilirubin,Total 0.7 MG/DL (0.2-1.0); Calcium 8.1 MG/DL (8.5-10.1); Osmolality,Calculated 292.8 MOS/KG (273-304); Potassium 3.5 MMOL/L (3.5-5.1); Total Protein 5.3 G/DL (6.4-8.3)
[2017-06-25 06:34] LABS: Band Neutrophils 1 % (0-10); Lymphocytes 9 % (20-55); Segmented Neutrophils 82 % (50-85); Total Cells Counted 100
[2017-06-25 06:35] LABS: Platelet Estimate Adequate
[2017-06-25] MEDS: PIPERACILLIN/TAZOBACTAM 3,375 MG in SODIUM CHLORIDE 0.9% 100 ML IV SCH ×3 (06:47→22:44)
[2017-06-25] MEDS: PANTOPRAZOLE 40 MG VIAL IV SCH (09:56)
[2017-06-25] MEDS: OSELTAMIVIR 75 MG CAPSULE PO SCH ×2 (09:56→20:14)
[2017-06-25] MEDS: guaiFENesin/DM ER 600-30 MG TABLET PO PRN (16:58)
[2017-06-25] MEDS: ALPRAZolam 0.25 MG TABLET PO PRN (16:58)
[2017-06-25] MEDS: ENOXAPARIN 30 MG/0.3 ML SYRINGE SUBCUT SCH (20:17)
[2017-06-25] MEDS: ACETAMINOPHEN 325 MG TABLET PO PRN (22:38)
[2017-06-26] MEDS: ALBUTEROL/IPRATROPIUM 3 ML NEB RESP TX SCH ×4 (00:27→20:00)
[2017-06-26] MEDS: PIPERACILLIN/TAZOBACTAM 3,375 MG in SODIUM CHLORIDE 0.9% 100 ML IV SCH ×3 (06:15→22:35)
[2017-06-26] MEDS: PANTOPRAZOLE 40 MG VIAL IV SCH (08:36)
[2017-06-26] MEDS: OSELTAMIVIR 75 MG CAPSULE PO SCH ×2 (08:36→20:20)
[2017-06-26] MEDS ORDERED: MAGNESIUM CITRATE 300 ML BOTTLE PO ONE (09:27)
[2017-06-26] MEDS: ONDANSETRON 4 MG/2 ML VIAL IV PRN (09:54)
[2017-06-26] MEDS: FUROSEMIDE 40 MG/4 ML VIAL IV SCH (09:54)
[2017-06-26] MEDS: VANCOMYCIN INJ 1,250 MG in SODIUM CHLORIDE 0.45% 250 ML IV SCH (10:42)
[2017-06-26] MEDS: ALPRAZolam 0.25 MG TABLET PO PRN ×2 (10:46→20:20)
[2017-06-26] MEDS: guaiFENesin/DM ER 600-30 MG TABLET PO PRN (10:46)
[2017-06-26] MEDS: ACETAMINOPHEN 325 MG TABLET PO PRN (10:46)
[2017-06-26] MEDS: ENOXAPARIN 30 MG/0.3 ML SYRINGE SUBCUT SCH (20:20)
[2017-06-27] MEDS: ALBUTEROL/IPRATROPIUM 3 ML NEB RESP TX SCH ×4 (01:08→19:40)
[2017-06-27 05:53] LABS: Basophils # 0.1 10*3/uL (0.0-0.2); Basophils % 0.6 % (0.0-0.8); Eosinophils # 0.2 10*3/uL (0.0-0.87); Eosinophils % 1.2 % (0.00-10.9); Hematocrit 36.3 VOL% (35.7-47.0); Hemoglobin 11.5 GM/DL (12.0-16.0); Immature Granulocytes % 6.4 %; Immature Granulocytes Absolute 0.81 #; Lymphocytes # 2.5 10*3/uL (1.4-4.0); Lymphocytes % 19.6 % (21.3-54.2); Mean Corpuscular HGB Conc 31.7 GM/DL (32-36); Mean Corpuscular Hemoglobin 29 PG (27-34); Mean Corpuscular Volume 91.9 FL (87-102); Mean Platelet Volume 11.2 FL (9.6-12.0); Monocytes # 0.8 10*3/uL (0.11-0.8); Monocytes % 5.9 % (1.7-12.7); Neutrophils # 8.4 10*3/uL (1.4-7.4); Neutrophils % 66.3 % (38.7-73.9); Platelet Count 212 T/CUMM (130-400); Red Blood Count 3.95 MC/CUMM (3.8-5.5); Red Cell Distribution Width 13.7 % (9.3-17.3); White Blood Count 12.6 T/CUMM (4-12)
[2017-06-27] MEDS: PIPERACILLIN/TAZOBACTAM 3,375 MG in SODIUM CHLORIDE 0.9% 100 ML IV SCH ×3 (06:05→22:12)
[2017-06-27 06:17] LABS: Hypochromasia 1+; Lymphocytes 17 % (20-55); Ovalocytes Slight; Platelet Estimate Adequate; Segmented Neutrophils 73 % (50-85); Total Cells Counted 100
[2017-06-27 06:18] LABS: Giant Platelets Few
[2017-06-27 06:26] LABS: Calcium 7.9 MG/DL (8.5-10.1); Osmolality,Calculated 274.7 MOS/KG (273-304); Potassium 3.4 MMOL/L (3.5-5.1)
[2017-06-27] MEDS ORDERED: POTASSIUM CHLORIDE 20 MEQ TABLET PO ONE (08:38)
[2017-06-27] MEDS: ALPRAZolam 0.25 MG TABLET PO PRN (10:05)
[2017-06-27] MEDS: FUROSEMIDE 40 MG/4 ML VIAL IV SCH (10:05)
[2017-06-27] MEDS: PANTOPRAZOLE 40 MG VIAL IV SCH (10:05)
[2017-06-27] MEDS: guaiFENesin/DM ER 600-30 MG TABLET PO PRN (10:05)
[2017-06-27] MEDS: OSELTAMIVIR 75 MG CAPSULE PO SCH ×2 (10:06→21:11)
[2017-06-27] MEDS: VANCOMYCIN INJ 1,250 MG in SODIUM CHLORIDE 0.45% 250 ML IV SCH (10:06)
[2017-06-27] MEDS: ACETAMINOPHEN 325 MG TABLET PO PRN ×2 (10:55→21:11)
[2017-06-27] MEDS: ENOXAPARIN 30 MG/0.3 ML SYRINGE SUBCUT SCH (21:12)
[2017-06-28] MEDS: ALBUTEROL/IPRATROPIUM 3 ML NEB RESP TX SCH ×4 (00:42→19:15)
[2017-06-28] MEDS: PIPERACILLIN/TAZOBACTAM 3,375 MG in SODIUM CHLORIDE 0.9% 100 ML IV SCH ×2 (06:17→14:45)
[2017-06-28 06:39] LABS: Basophils # 0.1 10*3/uL (0.0-0.2); Basophils % 0.4 % (0.0-0.8); Eosinophils # 0.4 10*3/uL (0.0-0.87); Eosinophils % 2.5 % (0.00-10.9); Hematocrit 34.3 VOL% (35.7-47.0); Hemoglobin 10.8 GM/DL (12.0-16.0); Immature Granulocytes % 8.1 %; Immature Granulocytes Absolute 1.27 #; Lymphocytes # 1.8 10*3/uL (1.4-4.0); Lymphocytes % 11.3 % (21.3-54.2); Mean Corpuscular HGB Conc 31.5 GM/DL (32-36); Mean Corpuscular Hemoglobin 29 PG (27-34); Mean Corpuscular Volume 93.2 FL (87-102); Mean Platelet Volume 11.7 FL (9.6-12.0); Monocytes # 1.1 10*3/uL (0.11-0.8); Monocytes % 7.2 % (1.7-12.7); Neutrophils # 11.1 10*3/uL (1.4-7.4); Neutrophils % 70.5 % (38.7-73.9); Platelet Count 251 T/CUMM (130-400); Red Blood Count 3.68 MC/CUMM (3.8-5.5); Red Cell Distribution Width 13.7 % (9.3-17.3); White Blood Count 15.7 T/CUMM (4-12)
[2017-06-28 07:12] LABS: Calcium 7.7 MG/DL (8.5-10.1); Potassium 3.6 MMOL/L (3.5-5.1)
[2017-06-28 07:23] LABS: Eosinophils 1 % (0-10); Lymphocytes 12 % (20-55); Promyelocytes 1 %; Segmented Neutrophils 77 % (50-85); Total Cells Counted 100
[2017-06-28 07:24] LABS: Hypochromasia 1+
[2017-06-28] MEDS: ALPRAZolam 0.25 MG TABLET PO PRN (09:31)
[2017-06-28] MEDS: ACETAMINOPHEN 325 MG TABLET PO PRN ×2 (09:31→20:36)
[2017-06-28] MEDS: PANTOPRAZOLE 40 MG VIAL IV SCH (09:31)
[2017-06-28] MEDS: FUROSEMIDE 40 MG/4 ML VIAL IV SCH (09:31)
[2017-06-28] MEDS: VANCOMYCIN INJ 1,250 MG in SODIUM CHLORIDE 0.45% 250 ML IV SCH (12:24)
[2017-06-28] MEDS: ALUMINUM/MAGNES/SIMETH MAX STR 30 ML UDCUP PO PRN (13:20)
[2017-06-28] MEDS: methylPREDNISolone SOD SUC 40 MG/1 ML VIAL IV SCH (15:49)
[2017-06-28] MEDS: AZITHROMYCIN INJ 250 MG in SODIUM CHLORIDE 0.9% 150 ML IV SCH (15:49)
[2017-06-28] MEDS: FLUCONAZOLE 100 MG TABLET PO SCH (15:49)
[2017-06-28] MEDS: SERTRALINE 50 MG TABLET PO SCH (15:49)
[2017-06-28] MEDS: ENOXAPARIN 30 MG/0.3 ML SYRINGE SUBCUT SCH (20:37)
[2017-06-28] MEDS: MONTELUKAST 10 MG TABLET PO SCH (20:39)
[2017-06-28] MEDS: cefTAZidime 500 MG in SYRINGE 1 EACH IV SCH (20:50)
[2017-06-28] MEDS: DESITIN 4OZ/NYSTATIN 15 GRAM MIXTURE PASTE TOP SCH (20:56)
[2017-06-29] MEDS: ALBUTEROL/IPRATROPIUM 3 ML NEB RESP TX SCH ×4 (00:38→20:38)
[2017-06-29] MEDS: methylPREDNISolone SOD SUC 40 MG/1 ML VIAL IV SCH ×4 (01:11→23:48)
[2017-06-29] MEDS: VANCOMYCIN INJ 1,250 MG in SODIUM CHLORIDE 0.45% 250 ML IV SCH ×3 (01:15→23:47)
[2017-06-29] MEDS: cefTAZidime 500 MG in SYRINGE 1 EACH IV SCH ×3 (03:04→19:47)
[2017-06-29] MEDS: LEVOTHYROXINE 150 MCG TABLET PO SCH (06:05)
[2017-06-29 06:34] LABS: Basophils # 0.1 10*3/uL (0.0-0.2); Basophils % 0.3 % (0.0-0.8); Hematocrit 34.5 VOL% (35.7-47.0); Hemoglobin 10.8 GM/DL (12.0-16.0); Immature Granulocytes % 6.7 %; Immature Granulocytes Absolute 1.04 #; Lymphocytes # 0.8 10*3/uL (1.4-4.0); Lymphocytes % 4.8 % (21.3-54.2); Mean Corpuscular HGB Conc 31.3 GM/DL (32-36); Mean Corpuscular Hemoglobin 30 PG (27-34); Mean Corpuscular Volume 94.8 FL (87-102); Monocytes # 0.4 10*3/uL (0.11-0.8); Monocytes % 2.3 % (1.7-12.7); Neutrophils # 13.4 10*3/uL (1.4-7.4); Neutrophils % 85.9 % (38.7-73.9); Platelet Count 273 T/CUMM (130-400); Red Blood Count 3.64 MC/CUMM (3.8-5.5); Red Cell Distribution Width 13.6 % (9.3-17.3); White Blood Count 15.6 T/CUMM (4-12)
[2017-06-29 07:04] LABS: Bilirubin,Total 0.4 MG/DL (0.2-1.0); Calcium 8.5 MG/DL (8.5-10.1); Potassium 3.5 MMOL/L (3.5-5.1)
[2017-06-29 07:23] LABS: Band Neutrophils 2 % (0-10); Lymphocytes 6 % (20-55); Segmented Neutrophils 88 % (50-85); Total Cells Counted 100
[2017-06-29 07:24] LABS: Hypochromasia 1+
[2017-06-29] MEDS: PANTOPRAZOLE 40 MG VIAL IV SCH (09:36)
[2017-06-29] MEDS: FLUCONAZOLE 100 MG TABLET PO SCH (09:37)
[2017-06-29] MEDS: guaiFENesin/DM ER 600-30 MG TABLET PO PRN (09:37)
[2017-06-29] MEDS: DESITIN 4OZ/NYSTATIN 15 GRAM MIXTURE PASTE TOP SCH ×2 (09:37→20:07)
[2017-06-29] MEDS: SERTRALINE 50 MG TABLET PO SCH (09:37)
[2017-06-29] MEDS: MONTELUKAST 10 MG TABLET PO SCH ×2 (09:37→20:07)
[2017-06-29] MEDS: AZITHROMYCIN INJ 250 MG in SODIUM CHLORIDE 0.9% 150 ML IV SCH (16:34)
[2017-06-29] MEDS: ENOXAPARIN 30 MG/0.3 ML SYRINGE SUBCUT SCH (20:07)
[2017-06-29] MEDS: ALPRAZolam 0.25 MG TABLET PO PRN (20:15)
[2017-06-29] MEDS: ACETAMINOPHEN 325 MG TABLET PO PRN (23:47)
[2017-06-30] MEDS: ALBUTEROL/IPRATROPIUM 3 ML NEB RESP TX SCH ×4 (01:25→19:59)
[2017-06-30] MEDS: cefTAZidime 500 MG in SYRINGE 1 EACH IV SCH ×3 (03:20→21:04)
[2017-06-30] MEDS: LEVOTHYROXINE 150 MCG TABLET PO SCH (06:29)
[2017-06-30] MEDS: ALPRAZolam 0.25 MG TABLET PO PRN (09:41)
[2017-06-30] MEDS: MONTELUKAST 10 MG TABLET PO SCH ×2 (09:42→21:04)
[2017-06-30] MEDS: SERTRALINE 50 MG TABLET PO SCH (09:42)
[2017-06-30] MEDS: PANTOPRAZOLE 40 MG VIAL IV SCH (09:42)
[2017-06-30] MEDS: ACETAMINOPHEN 325 MG TABLET PO PRN ×2 (09:42→22:42)
[2017-06-30] MEDS: FLUCONAZOLE 100 MG TABLET PO SCH (09:42)
[2017-06-30] MEDS: methylPREDNISolone SOD SUC 40 MG/1 ML VIAL IV SCH ×2 (09:42→16:30)
[2017-06-30] MEDS: DESITIN 4OZ/NYSTATIN 15 GRAM MIXTURE PASTE TOP SCH ×2 (09:43→22:43)
[2017-06-30] MEDS: VANCOMYCIN INJ 1,250 MG in SODIUM CHLORIDE 0.45% 250 ML IV SCH (12:45)
[2017-06-30] MEDS: AZITHROMYCIN INJ 250 MG in SODIUM CHLORIDE 0.9% 150 ML IV SCH (16:30)
[2017-06-30] MEDS: DORNASE ALFA 2.5 MG/2.5 ML VIAL RESP TX SCH (20:06)
[2017-06-30] MEDS: ENOXAPARIN 30 MG/0.3 ML SYRINGE SUBCUT SCH (21:04)
[2017-06-30] MEDS: OSELTAMIVIR 75 MG CAPSULE PO SCH (21:04)
[2017-07-01] MEDS: methylPREDNISolone SOD SUC 40 MG/1 ML VIAL IV SCH ×4 (00:34→23:59)
[2017-07-01] MEDS: VANCOMYCIN INJ 1,250 MG in SODIUM CHLORIDE 0.45% 250 ML IV SCH ×3 (00:35→18:28)
[2017-07-01] MEDS: ALBUTEROL/IPRATROPIUM 3 ML NEB RESP TX SCH ×4 (00:39→19:43)
[2017-07-01] MEDS: ACETAMINOPHEN 325 MG TABLET PO PRN (06:17)
[2017-07-01] MEDS: LEVOTHYROXINE 150 MCG TABLET PO SCH (06:17)
[2017-07-01] MEDS: cefTAZidime 500 MG in SYRINGE 1 EACH IV SCH ×3 (06:18→21:20)
[2017-07-01] MEDS: DORNASE ALFA 2.5 MG/2.5 ML VIAL RESP TX SCH ×2 (07:15→19:43)
[2017-07-01 09:12] LABS: Basophils % 0.2 % (0.0-0.8); Hematocrit 33.3 VOL% (35.7-47.0); Hemoglobin 10.6 GM/DL (12.0-16.0); Immature Granulocytes Absolute 0.91 #; Lymphocytes # 0.8 10*3/uL (1.4-4.0); Lymphocytes % 4.5 % (21.3-54.2); Mean Corpuscular HGB Conc 31.8 GM/DL (32-36); Mean Corpuscular Hemoglobin 30 PG (27-34); Mean Corpuscular Volume 92.8 FL (87-102); Mean Platelet Volume 11.1 FL (9.6-12.0); Monocytes % 5.3 % (1.7-12.7); Neutrophils # 15.3 10*3/uL (1.4-7.4); Platelet Count 425 T/CUMM (130-400); Red Blood Count 3.59 MC/CUMM (3.8-5.5); Red Cell Distribution Width 13.9 % (9.3-17.3); White Blood Count 18.1 T/CUMM (4-12)
[2017-07-01] MEDS: FLUCONAZOLE 100 MG TABLET PO SCH (09:15)
[2017-07-01] MEDS: ALPRAZolam 0.25 MG TABLET PO PRN ×2 (09:15→20:23)
[2017-07-01] MEDS: guaiFENesin/DM ER 600-30 MG TABLET PO PRN ×2 (09:15→20:23)
[2017-07-01] MEDS: SERTRALINE 50 MG TABLET PO SCH (09:15)
[2017-07-01] MEDS: MONTELUKAST 10 MG TABLET PO SCH ×2 (09:15→20:23)
[2017-07-01] MEDS: PANTOPRAZOLE 40 MG VIAL IV SCH (09:20)
[2017-07-01] MEDS: DESITIN 4OZ/NYSTATIN 15 GRAM MIXTURE PASTE TOP SCH ×2 (09:26→20:23)
[2017-07-01] MEDS: OSELTAMIVIR 75 MG CAPSULE PO SCH ×2 (09:27→20:23)
[2017-07-01 10:55] LABS: Hypochromasia 1+; Microcytosis 1+
[2017-07-01 11:16] LABS: Calcium 7.8 MG/DL (8.5-10.1); Osmolality,Calculated 281.8 MOS/KG (273-304); Potassium 3.4 MMOL/L (3.5-5.1)
[2017-07-01] MEDS ORDERED: AMINOPHYLLINE 250 MG in SODIUM CHLORIDE 0.9% 100 ML IV ONE (13:17)
[2017-07-01] MEDS: POTASSIUM IODIDE ORAL SOLN 1,000 MG/ML BOTTLE PO SCH ×2 (15:50→20:23)
[2017-07-01] MEDS: AZITHROMYCIN INJ 250 MG in SODIUM CHLORIDE 0.9% 250 ML IV SCH (15:52)
[2017-07-01] MEDS ORDERED: AMINOPHYLLINE 500 MG in SODIUM CHLORIDE 0.9% 480 ML IV SCH (19:00)
[2017-07-01] MEDS: ENOXAPARIN 30 MG/0.3 ML SYRINGE SUBCUT SCH (20:23)
[2017-07-02] MEDS: ALBUTEROL/IPRATROPIUM 3 ML NEB RESP TX SCH ×4 (00:38→18:20)
[2017-07-02] MEDS: LEVOTHYROXINE 150 MCG TABLET PO SCH (06:05)
[2017-07-02] MEDS: cefTAZidime 500 MG in SYRINGE 1 EACH IV SCH ×2 (06:05→13:50)
[2017-07-02] MEDS: DORNASE ALFA 2.5 MG/2.5 ML VIAL RESP TX SCH ×2 (07:21→18:28)
[2017-07-02 07:29] LABS: Calcium 7.8 MG/DL (8.5-10.1); Osmolality,Calculated 284.5 MOS/KG (273-304); Potassium 4.1 MMOL/L (3.5-5.1)
[2017-07-02] MEDS: SERTRALINE 50 MG TABLET PO SCH (08:37)
[2017-07-02] MEDS: MONTELUKAST 10 MG TABLET PO SCH ×2 (08:37→21:41)
[2017-07-02] MEDS: FLUCONAZOLE 100 MG TABLET PO SCH (08:37)
[2017-07-02] MEDS: POTASSIUM CHLORIDE 20 MEQ TABLET PO SCH ×2 (08:37→08:39)
[2017-07-02] MEDS: PANTOPRAZOLE 40 MG VIAL IV SCH (08:37)
[2017-07-02] MEDS: OSELTAMIVIR 75 MG CAPSULE PO SCH ×2 (08:38→21:41)
[2017-07-02] MEDS: DESITIN 4OZ/NYSTATIN 15 GRAM MIXTURE PASTE TOP SCH (08:38)
[2017-07-02] MEDS: methylPREDNISolone SOD SUC 40 MG/1 ML VIAL IV SCH ×2 (08:38→15:02)
[2017-07-02] MEDS: ACETAMINOPHEN 325 MG TABLET PO PRN ×2 (08:42→21:44)
[2017-07-02] MEDS ORDERED: TUBERCULIN SKIN TEST 0.1 ML SYRINGE INTRADERM ONE (09:21)
[2017-07-02] MEDS: VANCOMYCIN INJ 1,250 MG in SODIUM CHLORIDE 0.45% 250 ML IV SCH (12:48)
[2017-07-02] MEDS: THEOPHYLLINE ER (24 HR) 300 MG CAPSULE PO SCH (13:01)
[2017-07-02] MEDS: AZITHROMYCIN INJ 250 MG in SODIUM CHLORIDE 0.9% 250 ML IV SCH (15:02)
[2017-07-02] MEDS: ENOXAPARIN 30 MG/0.3 ML SYRINGE SUBCUT SCH (21:41)
[2017-07-02] MEDS: ALPRAZolam 0.25 MG TABLET PO PRN (21:44)
[2017-07-03] MEDS: ALBUTEROL/IPRATROPIUM 3 ML NEB RESP TX SCH ×4 (01:17→20:17)
[2017-07-03] MEDS: cefTAZidime 500 MG in SYRINGE 1 EACH IV SCH ×4 (01:20→21:16)
[2017-07-03] MEDS: methylPREDNISolone SOD SUC 40 MG/1 ML VIAL IV SCH ×3 (01:34→15:47)
[2017-07-03] MEDS: DESITIN 4OZ/NYSTATIN 15 GRAM MIXTURE PASTE TOP SCH ×3 (01:37→21:23)
[2017-07-03 05:43] LABS: Basophils % 0.2 % (0.0-0.8); Hematocrit 30.8 VOL% (35.7-47.0); Hemoglobin 9.8 GM/DL (12.0-16.0); Immature Granulocytes % 4.7 %; Immature Granulocytes Absolute 0.88 #; Lymphocytes # 0.9 10*3/uL (1.4-4.0); Lymphocytes % 4.9 % (21.3-54.2); Mean Corpuscular HGB Conc 31.8 GM/DL (32-36); Mean Corpuscular Hemoglobin 29 PG (27-34); Mean Corpuscular Volume 91.1 FL (87-102); Mean Platelet Volume 11.1 FL (9.6-12.0); Monocytes % 5.4 % (1.7-12.7); Neutrophils % 84.8 % (38.7-73.9); Platelet Count 433 T/CUMM (130-400); Red Blood Count 3.38 MC/CUMM (3.8-5.5); Red Cell Distribution Width 14.1 % (9.3-17.3); White Blood Count 18.8 T/CUMM (4-12)
[2017-07-03] MEDS: LEVOTHYROXINE 150 MCG TABLET PO SCH (05:45)
[2017-07-03] MEDS: VANCOMYCIN INJ 1,250 MG in SODIUM CHLORIDE 0.45% 250 ML IV SCH (05:51)
[2017-07-03 06:16] LABS: Calcium 7.8 MG/DL (8.5-10.1); Osmolality,Calculated 285.4 MOS/KG (273-304); Potassium 3.9 MMOL/L (3.5-5.1)
[2017-07-03 06:30] LABS: Hypochromasia 1+; Lymphocytes 8 % (20-55); Microcytosis 1+; Platelet Estimate Increased; Segmented Neutrophils 85 % (50-85); Total Cells Counted 100
[2017-07-03] MEDS: DORNASE ALFA 2.5 MG/2.5 ML VIAL RESP TX SCH ×2 (08:21→20:17)
[2017-07-03] MEDS: PANTOPRAZOLE 40 MG VIAL IV SCH (08:28)
[2017-07-03] MEDS: POTASSIUM CHLORIDE 20 MEQ TABLET PO SCH (08:29)
[2017-07-03] MEDS: SERTRALINE 50 MG TABLET PO SCH (08:29)
[2017-07-03] MEDS: MONTELUKAST 10 MG TABLET PO SCH ×2 (08:29→21:15)
[2017-07-03] MEDS: THEOPHYLLINE ER (24 HR) 300 MG CAPSULE PO SCH (08:29)
[2017-07-03] MEDS: guaiFENesin/DM ER 600-30 MG TABLET PO PRN (08:30)
[2017-07-03] MEDS: FLUCONAZOLE 100 MG TABLET PO SCH (08:31)
[2017-07-03] MEDS: OSELTAMIVIR 75 MG CAPSULE PO SCH ×2 (08:32→21:15)
[2017-07-03] MEDS: ACETAMINOPHEN 325 MG TABLET PO PRN ×2 (15:46→22:25)
[2017-07-03] MEDS: AZITHROMYCIN INJ 250 MG in SODIUM CHLORIDE 0.9% 250 ML IV SCH (15:48)
[2017-07-03] MEDS: ENOXAPARIN 30 MG/0.3 ML SYRINGE SUBCUT SCH (21:15)
[2017-07-03] MEDS: ALPRAZolam 0.25 MG TABLET PO PRN (21:21)
[2017-07-04] MEDS: ALBUTEROL/IPRATROPIUM 3 ML NEB RESP TX SCH ×2 (01:10→08:01)
[2017-07-04] MEDS: methylPREDNISolone SOD SUC 40 MG/1 ML VIAL IV SCH ×2 (01:55→09:00)
[2017-07-04] MEDS: VANCOMYCIN INJ 1,250 MG in SODIUM CHLORIDE 0.45% 250 ML IV SCH (01:58)
[2017-07-04] MEDS: LEVOTHYROXINE 150 MCG TABLET PO SCH (06:16)
[2017-07-04] MEDS: cefTAZidime 500 MG in SYRINGE 1 EACH IV SCH ×2 (06:17→12:30)
[2017-07-04 06:29] LABS: Basophils % 0.1 % (0.0-0.8); Hematocrit 31.3 VOL% (35.7-47.0); Hemoglobin 9.8 GM/DL (12.0-16.0); Immature Granulocytes % 4.3 %; Immature Granulocytes Absolute 0.89 #; Lymphocytes # 0.8 10*3/uL (1.4-4.0); Lymphocytes % 3.9 % (21.3-54.2); Mean Corpuscular HGB Conc 31.3 GM/DL (32-36); Mean Corpuscular Hemoglobin 29 PG (27-34); Mean Corpuscular Volume 93.7 FL (87-102); Monocytes # 0.8 10*3/uL (0.11-0.8); Monocytes % 3.6 % (1.7-12.7); Neutrophils # 18.4 10*3/uL (1.4-7.4); Neutrophils % 88.1 % (38.7-73.9); Platelet Count 403 T/CUMM (130-400); Red Blood Count 3.34 MC/CUMM (3.8-5.5); Red Cell Distribution Width 14.1 % (9.3-17.3); White Blood Count 20.9 T/CUMM (4-12)
[2017-07-04 06:50] LABS: Hypochromasia 1+; Lymphocytes 5 % (20-55); Segmented Neutrophils 93 % (50-85); Total Cells Counted 100
[2017-07-04 06:51] LABS: Microcytosis 1+
[2017-07-04 07:05] LABS: Calcium 8.2 MG/DL (8.5-10.1); Osmolality,Calculated 287.3 MOS/KG (273-304); Potassium 3.9 MMOL/L (3.5-5.1)
[2017-07-04] MEDS: guaiFENesin/DM ER 600-30 MG TABLET PO PRN (08:55)
[2017-07-04] MEDS: SERTRALINE 50 MG TABLET PO SCH (08:55)
[2017-07-04] MEDS: MONTELUKAST 10 MG TABLET PO SCH (08:55)
[2017-07-04] MEDS: THEOPHYLLINE ER (24 HR) 300 MG CAPSULE PO SCH (08:55)
[2017-07-04] MEDS: PANTOPRAZOLE 40 MG VIAL IV SCH (08:56)
[2017-07-04] MEDS: ALPRAZolam 0.25 MG TABLET PO PRN (08:56)
[2017-07-04] MEDS: POTASSIUM CHLORIDE 20 MEQ TABLET PO SCH (08:56)
[2017-07-04] MEDS: DESITIN 4OZ/NYSTATIN 15 GRAM MIXTURE PASTE TOP SCH (08:56)
[2017-07-04] MEDS: OSELTAMIVIR 75 MG CAPSULE PO SCH (09:01)
[2017-07-04] MEDS: FLUCONAZOLE 100 MG TABLET PO SCH (09:01)
[2017-07-04] MEDS: DORNASE ALFA 2.5 MG/2.5 ML VIAL RESP TX SCH (11:02)
[2017-07-04 12:26] VITALS: BP 134/61
== END 2017-07-04 15:07 | disposition swing bed (61) | DRG 194 ==
LOC: N.ED 10:06 → N.EDINP 13:40 → SUATTDRO 13:40 → N.5E 14:43